=== PATIENT | male | born 1945 | race Caucasian/White ===

== ENCOUNTER 2017-12-04 11:08 | Emergency (ER) | payer SELFPAY ==
[~2017-12-04] VITALS: Ht 182.9 cm; Wt 99.8 kg
== END 2017-12-04 12:26 | disposition home or self-care (01) ==
LOC: ER 11:08
DX: M54.41 Lumbago with sciatica, right side (principal); Z88.2 Allergy status to sulfonamides; F17.200 Nicotine dependence, unspecified, uncomplicated
CPT/HCPCS: 96372; 99282; J1885

== ENCOUNTER 2018-04-04 14:13 | Emergency (ER) | payer OTHER ==
[~2018-04-04] VITALS: Ht 198.1 cm; Wt 108.9 kg
[2018-04-04 15:53] LABS: BASOPHILS ABSOLUTE AUTO 0.09 K/mm3 (0.00-0.23); BASOPHILS PERCENT AUTO 1 % (0-2); EOSINOPHILS ABSOLUTE AUTO 0.56 K/mm3 (0.00-0.68); EOSINOPHILS PERCENT AUTO 7 % (0-6); IMMATURE GRAN ABSOLUTE AUTO 0.02 K/mm3 (0.00-0.10); IMMATURE GRAN PERCENT AUTO 0 % (0-1); LYMPHOCYTES ABSOLUTE AUTO 2.25 K/mm3 (0.84-5.20); LYMPHOCYTES PERCENT AUTO 27 % (21-46); MONOCYTES ABSOLUTE AUTO 0.67 K/mm3 (0.16-1.47); MONOCYTES PERCENT AUTO 8 % (4-13); Mean Corpuscular HGB 28.9 pg (26.0-34.0); Mean Corpuscular HGB Conc 32.6 g/dL (31.5-36.5); Mean Corpuscular Volume 89 fL (80-100); Mean Platelet Volume 10.9 fL (9.1-12.4); NEUTROPHILS ABSOLUTE AUTO 4.85 K/mm3 (1.96-9.15); NEUTROPHILS PERCENT AUTO 58 % (41-73); Platelet Count 287 K/mm3 (150-400); RDW Coefficient Variation 13.2 % (11.7-14.2); RDW Standard Deviation 43.2 fL (35.1-46.3); Red Blood Cell Count 4.84 M/mm3 (4.30-5.90); White Blood Cell Count 8.44 K/mm3 (4.00-11.30)
[2018-04-04 16:06] LABS: Albumin, Blood 3.7 g/dL (3.4-5.0); Bilirubin, Total 0.3 mg/dL (0.1-1.0); Bun/Creatinine Ratio 21.6 (12.0-20.0); Creatinine, Blood 1.39 mg/dL (0.60-1.20); Globulin, Blood 3.7 g/dL (2.2-4.0); Potassium, Blood 4.4 mmol/L (3.5-5.5); Total Protein, Blood 7.4 g/dL (6.4-8.2)
[2018-04-04] MEDS ORDERED: ALBU90OI (16:51)
[2018-04-04] MEDS ORDERED: AMLO10 PO (16:51)
[2018-04-04] MEDS ORDERED: ASPI81CH PO (16:52)
[2018-04-04] MEDS ORDERED: BUDE10.22 (16:53)
[2018-04-04] MEDS ORDERED: ATOR80 PO (16:53)
[2018-04-04] MEDS ORDERED: DOCU100 PO (16:54)
[2018-04-04] MEDS ORDERED: CYCL10 PO (16:54)
[2018-04-04] MEDS ORDERED: VITAMIN D-32000 UNIT PO (16:54)
[2018-04-04] MEDS ORDERED: Advair Hfa 230-12 GM (16:55)
[2018-04-04] MEDS ORDERED: INSU100I6 (16:55)
[2018-04-04] MEDS ORDERED: CENTRUM SILVER1 EAC1 PO (16:56)
[2018-04-04] MEDS ORDERED: LOSA50 PO (16:56)
[2018-04-04] MEDS ORDERED: Omeprazole20 M1 PO (16:56)
[2018-04-04] MEDS ORDERED: METF500C PO (16:56)
[2018-04-04] MEDS ORDERED: SALS750 PO (16:57)
[2018-04-04] MEDS ORDERED: TAMS.4ER PO (16:57)
[2018-04-04] MEDS ORDERED: QUET25 PO (16:57)
== END 2018-04-04 18:05 | disposition home or self-care (01) ==
LOC: ER 14:13
PROVIDERS: Emergency Medicine
DX: M54.10 Radiculopathy, site unspecified (principal); E11.9 Type 2 diabetes mellitus without complications; I10 Essential (primary) hypertension; Z79.82 Long term (current) use of aspirin; Z79.899 Other long term (current) drug therapy; Z88.2 Allergy status to sulfonamides; Z79.4 Long term (current) use of insulin
CPT/HCPCS: 36415; 70450; 80053; 85025; 93005; 93010; 93971; 99285-25; J7030

== ENCOUNTER 2018-12-28 18:04 | Emergency (ER) | payer OTHER ==
[~2018-12-28] VITALS: Ht 182.9 cm; Wt 99.8 kg
[~2018-12-28 18:04] MED LIST: ALBU90OI; AMLO10 PO; ASPI81CH PO; ATOR80 PO; Advair Hfa 230-12 GM; BUDE10.22; CENTRUM SILVER1 EAC1 PO; CYCL10 PO; DOCU100 PO; INSU100I6; LOSA50 PO; METF500C PO; Omeprazole20 M1 PO; QUET25 PO; SALS750 PO; TAMS.4ER PO; VITAMIN D-32000 UNIT PO
[2018-12-28 18:30] LABS: BASOPHILS ABSOLUTE AUTO 0.08 K/mm3 (0.00-0.23); BASOPHILS PERCENT AUTO 1 % (0-2); EOSINOPHILS ABSOLUTE AUTO 0.36 K/mm3 (0.00-0.68); EOSINOPHILS PERCENT AUTO 4 % (0-6); Hematocrit 42.4 % (37.0-53.0); Hemoglobin 13.7 g/dL (13.5-17.5); IMMATURE GRAN ABSOLUTE AUTO 0.02 K/mm3 (0.00-0.10); IMMATURE GRAN PERCENT AUTO 0 % (0-1); LYMPHOCYTES ABSOLUTE AUTO 2.81 K/mm3 (0.84-5.20); LYMPHOCYTES PERCENT AUTO 32 % (21-46); MONOCYTES ABSOLUTE AUTO 0.74 K/mm3 (0.16-1.47); MONOCYTES PERCENT AUTO 8 % (4-13); Mean Corpuscular HGB 28.7 pg (26.0-34.0); Mean Corpuscular HGB Conc 32.3 g/dL (31.5-36.5); Mean Corpuscular Volume 89 fL (80-100); Mean Platelet Volume 10.7 fL (9.1-12.4); NEUTROPHILS ABSOLUTE AUTO 4.84 K/mm3 (1.96-9.15); NEUTROPHILS PERCENT AUTO 55 % (41-73); Platelet Count 292 K/mm3 (150-400); RDW Coefficient Variation 13.8 % (11.7-14.2); RDW Standard Deviation 44.8 fL (35.1-46.3); Red Blood Cell Count 4.77 M/mm3 (4.30-5.90); White Blood Cell Count 8.85 K/mm3 (4.00-11.30)
[2018-12-28 18:43] LABS: Alanine Aminotransfer (ALT/SGP 20 U/L (12-78); Albumin, Blood 3.6 g/dL (3.4-5.0); Alk Phos 107 U/L (50-136); Anion Gap 5 mmol/L (6-16); Aspartate Aminotrans (AST/SGOT 17 U/L (12-37); Bilirubin, Total 0.4 mg/dL (0.1-1.0); Blood Urea Nitrogen 14 mg/dL (8-24); Bun/Creatinine Ratio 12.5 (12.0-20.0); CO2, Blood 28 mmol/L (21-32); Calcium, Blood 9.2 mg/dL (8.5-10.1); Chloride, Blood 109 mmol/L (98-108); Creatinine, Blood 1.12 mg/dL (0.60-1.20); Ethanol (Alcohol), Blood, Med <3 mg/dL; Globulin, Blood 3.6 g/dL (2.2-4.0); Glomerular Filtration Rate >60 (60-); Glucose, Blood 138 mg/dL (70-99); Potassium, Blood 4.3 mmol/L (3.5-5.5); Sodium, Blood 142 mmol/L (136-145); Total Protein, Blood 7.2 g/dL (6.4-8.2)
[2018-12-28] MEDS ORDERED: [UNRECOGNIZED DRUG - OTHER] (18:58)
[2018-12-28] MEDS ORDERED: [UNRECOGNIZED DRUG - CODE] (18:59)
[2018-12-28] MEDS ORDERED: PRAHYD1AE (19:00)
[2018-12-28] MEDS ORDERED: METTREX2.5 (19:01)
[2018-12-28 19:18] LABS: Source, Urine Catheter
[2018-12-28 19:25] LABS: Appearance, Urine Clear (Clear); Bilirubin, Urine Neg (Neg); Blood, Urine Neg (Neg); Color, Urine Amber (P-Yellow); Glucose Qualitative, Urine 3+ (Neg); Ketones, Urine 1+ (Neg); Leukocyte Esterase, Urine 1+ (Neg); Nitrite, Urine Neg (Neg); Protein, Urine 2+ (Neg); Urobilinogen, Urine 1+ (Normal); pH, Urine 6.5 (5.0-8.0)
[2018-12-28 19:33] LABS: White Blood Cells, Urine 0-2 /hpf (0-5)
[2018-12-28 19:34] LABS: Bacteria Mod /hpf; Mucus Light ({null, 0-Heavy}); Squamous Epithelial Cells Not Seen /hpf (Few)
[2018-12-28 19:35] LABS: U Amphetamine Screen Not Detected; U Barbituate Screen Not Detected; U Benzodiazapine Screen Not Detected; U Buprenorphine Screen Not Detected; U Cannabinoids Screen Not Detected; U Cocaine Screen Not Detected; U Methadone Screen Not Detected; U Methamphetamine Screen Not Detected; U Opiates Screen Not Detected; U Oxycodone Screen Not Detected; U Phencyclidine Screen Not Detected; U Propoxyphene Screen Not Detected
== END 2018-12-28 21:10 | disposition home or self-care (01) ==
LOC: ER 18:04
PROVIDERS: Emergency Medicine
DX: R20.8 Other disturbances of skin sensation (principal); F41.9 Anxiety disorder, unspecified; G89.4 Chronic pain syndrome; Z88.2 Allergy status to sulfonamides; Z88.1 Allergy status to other antibiotic agents; Z79.899 Other long term (current) drug therapy; Z79.82 Long term (current) use of aspirin; Z79.4 Long term (current) use of insulin; E11.9 Type 2 diabetes mellitus without complications; I10 Essential (primary) hypertension; F17.210 Nicotine dependence, cigarettes, uncomplicated
CPT/HCPCS: 70450; 71045; 80053; 81001; 85025; 87077; 87086; 87147; 87186; 93005; 93010; 96361; 96374; 99285-25; G0480; J2060; J7030

== ENCOUNTER 2020-01-04 14:36 | Emergency (ER) | payer SELFPAY ==
[~2020-01-04] VITALS: Ht 182.9 cm; Wt 90.7 kg
[~2020-01-04 14:36] MED LIST changes: +METTREX2.5; +PRAHYD1AE; +[UNRECOGNIZED DRUG - CODE]; +[UNRECOGNIZED DRUG - OTHER]
[2020-01-04 15:08] LABS: BASOPHILS ABSOLUTE AUTO 0.04 K/mm3 (0.00-0.23); BASOPHILS PERCENT AUTO 0 % (0-2); EOSINOPHILS ABSOLUTE AUTO 0.18 K/mm3 (0.00-0.68); EOSINOPHILS PERCENT AUTO 2 % (0-6); Hematocrit 42.1 % (37.0-53.0); Hemoglobin 13.1 g/dL (13.5-17.5); IMMATURE GRAN ABSOLUTE AUTO 0.04 K/mm3 (0.00-0.10); IMMATURE GRAN PERCENT AUTO 0 % (0-1); LYMPHOCYTES ABSOLUTE AUTO 0.92 K/mm3 (0.84-5.20); LYMPHOCYTES PERCENT AUTO 9 % (21-46); MONOCYTES PERCENT AUTO 9 % (4-13); Mean Corpuscular HGB 26.6 pg (26.0-34.0); Mean Corpuscular HGB Conc 31.1 g/dL (31.5-36.5); Mean Corpuscular Volume 85 fL (80-100); Mean Platelet Volume 9.1 fL (9.1-12.4); NEUTROPHILS ABSOLUTE AUTO 7.86 K/mm3 (1.96-9.15); NEUTROPHILS PERCENT AUTO 79 % (41-73); Platelet Count 669 K/mm3 (150-400); RDW Coefficient Variation 13.7 % (11.7-14.2); RDW Standard Deviation 42.5 fL (35.1-46.3); Red Blood Cell Count 4.93 M/mm3 (4.30-5.90); White Blood Cell Count 9.94 K/mm3 (4.00-11.30)
[2020-01-04 15:30] LABS: Alanine Aminotransfer (ALT/SGP 28 U/L (12-78); Albumin, Blood 2.3 g/dL (3.4-5.0); Albumin/Globulin Ratio 0.4 (0.8-1.8); Alk Phos 103 U/L (50-136); Anion Gap 8 mmol/L (6-16); Aspartate Aminotrans (AST/SGOT 27 U/L (12-37); Bilirubin, Total 0.3 mg/dL (0.1-1.0); Blood Urea Nitrogen 21 mg/dL (8-24); Bun/Creatinine Ratio 19.1 (12.0-20.0); CO2, Blood 27 mmol/L (21-32); Calcium, Blood 9.8 mg/dL (8.5-10.1); Chloride, Blood 102 mmol/L (98-108); Globulin, Blood 5.8 g/dL (2.2-4.0); Glomerular Filtration Rate >60 (60-); Glucose, Blood 177 mg/dL (70-99); Potassium, Blood 4.5 mmol/L (3.5-5.5); Sodium, Blood 137 mmol/L (136-145); Total Protein, Blood 8.1 g/dL (6.4-8.2)
== END 2020-01-04 16:45 | disposition left against medical advice (07) ==
LOC: ER 14:36
PROVIDERS: Emergency Medicine
DX: Z53.21 Procedure and treatment not carried out due to patient leaving prior to being seen by health care provider (principal)
CPT/HCPCS: 80053; 85025; 86850; 86900; 86901